=== PATIENT | male | born 1960 | race Caucasian/White ===

== ENCOUNTER 2020-06-28 11:47 | Observation (INO) ==
[2020-06-28] MEDS ORDERED: PANTOprazole 80 MG in DEXTROSE 5% 100 ML IV ONE (12:49)
[2020-06-28] MEDS ORDERED: ONDANSETRON INJ 2 MG/ML 2 ML VIAL IV STA (12:49)
[2020-06-28] MEDS ORDERED: SODIUM CHLORIDE 0.9% 1000ML 1,000 ML IV SCH (13:00)
[2020-06-28 13:18] LABS: Basophils # (auto) 0.03 K/uL (0-0.2); Basophils % (auto) 0.3 %; Eosinophils # (auto) 0.25 K/uL (0-0.5); Eosinophils % (auto) 2.5 %; Hematocrit (blood only) 45.2 % (42-52); Hemoglobin 16.7 g/dL (14.0-18.0); Immature Granulocytes # (auto) 0.03 K/uL (0.00-0.02); Immature Granulocytes % (auto) 0.3 %; Lymphocytes # (auto) 1.28 K/uL (1.2-3.4); Lymphocytes % (auto) 12.9 %; Mean Corpuscular Hemoglobin 29.8 pg (25-34); Mean Corpuscular Hgb Conc 36.9 g/dL (32-36); Mean Corpuscular Volume 80.6 fL (80-100); Mean Platelet Volume 9.6 fL (7.4-10.4); Monocytes # (auto) 0.85 K/uL (0.11-0.59); Monocytes % (auto) 8.5 %; Neutrophils # (auto) 7.52 K/uL (1.4-6.5); Neutrophils % (auto) 75.5 %; Platelet Count 214 K/uL (130-400); RDW Coefficient of Variation 13.4 % (11.5-14.5); RDW Standard Deviation 39.6 fL (36.4-46.3); Red Blood Count 5.61 M/uL (4.7-6.1); White Blood Count 9.96 K/uL (4.8-10.8)
--- NOTE | 2020-06-28 13:21 | Gastrointestinal Consultation ---
Date of Consultation June 28, 2020 Assessment & Plan (1) Dysphagia: (2) Esophageal obstruction due to food impaction: (3) Hematemesis: suspect rosy de la torre tear from forced wretching and food bolus. Recs: keep NPO plan for EGD this afternoon in OR to further evaluate supportive care will need admission to medicine/observation overnight for monitoring Thank you for allowing me to participate in the care of this patient History of Present Illness Reason for Consultation: food bolus, hematemesis Requesting Physician: ER History of Present Illness 59 yo male with hx testicular cancer s/p resection here with hematemesis and dysphagia. He has had dysphagia to solid food for a long time, and will have episodes few times a year where he has to remove the food from his throat with his finger due to dysphagia. Today he had a similar episode after eating an egg roll at 11:30 am, and feels like it is stuck. He then proceeded to vomit blood after forcing himself to wretch. Currently HD stable, no other symptoms including dyspnea, cough, fevers. No prior EGD. labs reviewed. Allergies Allergy/AdvReac Type Severity Reaction Status Date / Time [id number] Allergy Unknown Uncoded 05/13/02 18:27 N Allergy Unknown Uncoded 05/13/02 18:27 Home Medications Medication Instructions Recorded Confirmed Type Aspirin Enteric Coated (Ecotrin Or 81 mg PO DAILY #0 06/14/10 History Generic *) Multivitamin 1 tab PO DAILY #0 06/14/10 History Potassium Chloride (Micro-K Ext 10 meq PO DAILY #0 06/14/10 History Rel) Triamterene/Hctz (Maxzide Unknown 62.5 mg PO DAILY #0 06/14/10 History Dose *) ALLOPURINOL (ZYLOPRIM) 100 mg PO DAILY #0 tab 06/18/12 History Patient History Social History Smoking Status: Never smoker Feels Safe at Home: Yes Review of Systems Constitutional: no fever, no chills and no weight loss Eyes: as per Subjective / HPI Ear, Nose, Mouth, Throat: as per Subjective / HPI Respiratory: no dyspnea and no dyspnea on exertion Cardiovascular: no chest pain and no palpitations Gastrointestinal: as per Subjective / HPI Musculoskeletal: no joint pain and no swelling Integumentary: no rash and no lesions Neurologic: no numbness and no paresthesia Psychiatric: no depression and no anxiety Endocrine: no fatigue Hematologic / Lymphatic: no easy bleeding and no easy bruising Physical Exam Constitutional: WD/WN, vitals as above Eyes: EOM intact bilaterally Neck: normal visual inspection Respiratory: normal respiratory effort, lungs clear to auscultation Cardiovascular: RRR, no murmur, no edema Gastrointestinal (Abdomen): Inspection/Auscultation: abdomen normal to inspection; abdomen not distended Percussion/Palpation: abdomen soft; abdomen nontender and no hepatosplenomegaly Musculoskeletal: Extremities: no cyanosis Gait: normal gait Skin: no rashes, warm and dry Neurologic: moves all extremities Psychiatric: A+Ox3, euthymic affect Results & Data ([facility]) Vital Signs (Past 12 Hours) Vital Signs Temp Pulse Resp BP Pulse Ox 06/28/20 11:51 36.9 C 71 20 152/91 H 97 PG Care Time/CCT Total # of Minutes Spent Total Time Spent with Patient: Total time spent is greater than 50% in coordination of care (as documented) at patient's floor/unit and/or counseling patient: Coding Level of Care Code 56799 Office/OBS Consult Lvl 4 Diagnoses Dysphagia R13.10 Esophageal obstruction due to food impaction K22.2; T18.128A Hematemesis K92.0
--- NOTE | 2020-06-28 13:23 | XRay Report ---
SINGLE VIEW CHEST CLINICAL HISTORY: Upper GI bleeding. Foreign body sensation. FINDINGS: An AP, portable, upright chest radiograph is compared to study dated 06/22/2009 and correlat ed with chest CT dated 12/28/2009. The examination is degraded by portable technique and apical lordot ic positioning. The cardiomediastinal silhouette is unremarkable. There is minimal left basilar atele ctasis. The lungs and pleural spaces are otherwise clear. No pneumothorax is seen. The bony thorax is grossly intact. IMPRESSION: No active disease in the chest. ACT 112: Negative or not required by law. Electronically signed by: Nixon Jerez M.D. 06/28/2020 1:21 PM
[2020-06-28 13:29] LABS: Partial Thromboplastin Ratio 0.9; Partial Thromboplastin Time 22.8 Seconds (21.0-31.0)
[2020-06-28 13:36] LABS: BUN Creatinine Ratio 12.2 (10-20); Calcium 9.4 mg/dl (8.5-10.1); Creatinine Clr Calc Pharmacy 83.6 ml/min; Est GFR (African American) 88.4; Est GFR (Non-African American) 76.2; Potassium 3.6 mmol/L (3.5-5.1)
[2020-06-28 13:38] LABS: Albumin Globulin Ratio 1.3 (0.9-2); Bilirubin,Total 0.9 mg/dl (0.2-1)
[2020-06-28 14:20] LABS: Influenza A virus by PCR Negative (Neg); Influenza B virus by PCR Negative (Neg); RSV by PCR Negative (Neg); SARS CoV2 RNA(COVID-19) InHosp NEGATIVE (Negative)
--- NOTE | 2020-06-28 14:55 | Electrocardiogram Report ---
Test Reason : Blood Pressure : / mmHG Vent. Rate : 064 BPM Atrial Rate : 064 BPM P-R Int : 140 ms QRS Dur : 086 ms QT Int : 382 ms P-R-T Axes : 010 029 021 degrees QTc Int : 394 ms Normal sinus rhythm Normal ECG No previous ECGs available Confirmed by Louis Mahan ([id number]) on 06/28/2020 2:55:08 PM Referred By: Confirmed By:Louis Mahan
[2020-06-28] MEDS ORDERED: LIDOCAINE HCL 2% 2 ML VIAL/AMP(20MG/ML) INFIL ONE (15:18)
[2020-06-28] MEDS ORDERED: PROPOFOL IV EMULSION 10 MG/ML 20 ML VIAL IV ONE (15:18)
[2020-06-28] MEDS ORDERED: fentaNYL citrate 100 MCG/2 ML VIAL ONE (15:19)
[2020-06-28] MEDS ORDERED: MIDAZOLAM HCL 1 MG/ML 2ML VIAL ONE (15:19)
[2020-06-28] MEDS ORDERED: fentaNYL citrate 100 MCG/2 ML VIAL IV PRN (15:23)
[2020-06-28] MEDS ORDERED: ONDANSETRON INJ 2 MG/ML 2 ML VIAL IV PRN ×2 (15:23→18:08)
[2020-06-28] MEDS ORDERED: ePHEDrine sulfate 50 MG/ML AMP IV PRN (15:23)
[2020-06-28] MEDS ORDERED: ATROPINE SULFATE 0.1 MG/ML 10ML SYR IV PRN (15:23)
[2020-06-28] MEDS ORDERED: MEPERIDINE HCL 25 MG/ML CARP/VIAL IV PRN (15:23)
[2020-06-28] MEDS ORDERED: LABETALOL HCL IV 5 MG/ML 20ML IV PRN (15:23)
[2020-06-28] MEDS ORDERED: PHENYLEPHRINE 100MCG/ML 5ML SYR IV PRN (15:23)
--- NOTE | 2020-06-28 15:25 | Anesthesiology Consultation ---
Date of Service June 28, 2020 Covid 19 negative on 06/28/20. Assessment & Plan (1) Encounter for pre-operative examination: Chart Review Chart Review: Acceptable Risk for Surgery and Patient NOT seen in Pre Admission Testing Consults Requested none History Surgery Operation Date: 06/28/20 08:40 Proposed Procedures p Esophagogastroduodenoscopy - Food Bolus - Messi Ram MD Height/Weight Height: 5 ft 9 in Weight: 93.9 kg Allergies Allergy/AdvReac Type Severity Reaction Status Date / Time [id number] Allergy Unknown Uncoded 05/13/02 18:27 N Allergy Unknown Uncoded 05/13/02 18:27 Medications Home Medications Medication Instructions Recorded Confirmed Last Taken allopurinol 100 mg PO DAILY 06/28/20 06/28/20 Unknown atenolol 25 mg PO DAILY 06/28/20 06/28/20 Unknown atorvastatin 40 mg PO DAILY 06/28/20 06/28/20 Unknown triamterene-hydrochlorothiazid 1 tab PO DAILY 06/28/20 06/28/20 Unknown NPO Date Last Intake of Fluids: 06/28/20 Time Last Intake of Fluids: 11:30 Date Last Intake of Solids: 06/28/20 Time Last Intake of Solids: 11:30 Past Medical History Medical History Diverticulosis Gout History of testicular cancer HLD (hyperlipidemia) HTN (hypertension) Past Family History Family History Father , 74 Myocardial infarction Diabetes Son Testicular cancer Past Surgical History Surgical History H/O removal of testicle Right History of colonoscopy Social History Smoking Status: Never smoker Hx Alcohol Use: Yes Alcohol type: beer Hx Substance Use: No Physical Exam Vital Signs Last Vital Signs Temp 37 C 06/28/20 15:12 Pulse 93 H 06/28/20 15:12 Resp 18 06/28/20 15:12 BP 160/82 H 06/28/20 15:12 Pulse Ox 96 06/28/20 15:12 Testing Laboratory Results 06/28/20 13:05 06/28/20 13:05 PT 10.0 Seconds (9.0-12.0) 06/28/20 13:05 INR 1.0 (0.9-1.1) 06/28/20 13:05 APTT 22.8 Seconds (21.0-31.0) 06/28/20 13:05 Blood Type A Positive 06/28/20 13:05 Antibody Screen NEGATIVE 06/28/20 13:05 Electrocardiogram Date: 06/28/20 Findings: + NSR @ (28)
--- NOTE | 2020-06-28 15:26 | History & Physical Report ---
Date of Service June 28, 2020 Assessment & Plan (1) Esophageal obstruction due to food impaction: (2) Dysphagia: (3) Hematemesis: This is a 59-year-old male who has significant past medical history of HTN, HLD, gout, diverticulosis, history of testicular cancer status post resection who presents to ED after having a few moments prior to arrival. Concern for sandra de la torre tear 2/2 to retching and food bolus. To undergo urgent EGD this afternoon by Dr. Ram. EGD and then admit to med tele continue PPI bolus and gtt NPO - will await post EGD recommendations IVF 125cc/hr repeat H&H @ 1900 (4) HTN (hypertension): BP elevated, may be situational took meds this a.m. continue atenolol, hold Maxizide until volume status re eval in a.m. (5) HLD (hyperlipidemia): continue statin (6) Gout: continue allopurinol (7) DVT prophylaxis: SCD/TEDS 2/2 to hematemesis Dispo: med tele PCP: Rody Calderon FULL CODE Pt was seen and examined in collaboration with Dr. Borjas, please see addendum History of Present Illness Chief Complaint: Food Bolus prior to arrival. Primary Care Provider: Marshall Calderon, DO This is a 59-year-old male who has significant past medical history of HTN, HLD, gout, diverticulosis, history of testicular cancer status post resection who presents to ED after having a few moments prior to arrival. Patient was at work whenever he was eating lunch. He was eating a eggroll when it got stuck. This occasionally happens 2-3 times a year and he makes himself vomit and regurgitate. Symptoms typically resolve. Today he was having difficulty regurgitating and developed hematemesis. He presented to ED and had approximately 100 cc hematemesis. He was seen and evaluated by GI was recommending urgent endoscopy due to suspected Sandra-De La Torre tear in setting of retching. Patient denies fall EGD in the past. Until since arrival he has been in her normal state of health. He denies any recent fever, chills, sweats, lightheadedness, dizziness, chest pain, palpitations, shortness of breath, cough, nausea, abdominal pain, change in bowel or urinary habits. Patient took medications for symptoms morning. In ED he remained hemodynamically stable and H&H was WNL. Upon my evaluation he had an additional 100 mg of mixed clear and bloody emesis. Allergies Allergy/AdvReac Type Severity Reaction Status Date / Time bee venom protein (honey bee) Allergy Unknown Unknown Verified 06/28/20 15:34 Home Medications Medication Instructions Recorded Confirmed Type allopurinol 100 mg PO DAILY 06/28/20 06/28/20 History aspirin [Aspir-81] 81 mg PO DAILY 06/28/20 06/28/20 History atenolol 25 mg PO DAILY 06/28/20 06/28/20 History atorvastatin 40 mg PO DAILY 06/28/20 06/28/20 History triamterene-hydrochlorothiazid 1 tab PO DAILY 06/28/20 06/28/20 History Past Med/Surg History Medical History Diverticulosis Gout History of testicular cancer HLD (hyperlipidemia) HTN (hypertension) Surgical History H/O removal of testicle Right History of colonoscopy Family History Father , 74 Myocardial infarction Diabetes Son Testicular cancer Social History (Updated 06/28/20 @ 15:24 by Ariana Arevalo PA-C) Smoking Status: Never smoker Hx Alcohol Use: Yes Alcohol type: beer Alcohol Intake Frequency: Monthly or Less Alcohol Intake Frequency Comment: 3 x / year Hx Substance Use: No Preferred Language: [place] marital status: Current Living Situation: Spouse Feels Safe at Home: Yes Review of Systems Review of Systems: All systems reviewed & are unremarkable except as noted in HPI & below Physical Exam Physical Exam: Constitutional: WD/WN, vitals as above, NAD, sitting up in bed, pleasant, conversing easily Head: Normocephalic, Atraumatic Eyes: PERRL, conjunctivae normal, anicteric sclerae ENMT: external ear and nose normal, oropharynx normal Neck: trachea midline, no thyromegaly normal visual inspection Respiratory: normal respiratory effort, lungs clear to auscultation, no wheeze, rales, rhonchi. Normal insp/exp effort, no accessory muscle use Cardiovascular: RRR, no murmur, no edema Vessels: no JVD or carotid bruit Chest: normal inspection of chest Abdomen: normal bowel sounds, soft, nontender, no hepatosplenomegaly Musculoskeletal: no cyanosis or clubbing, extremities motor strength 5/5 Skin: no rashes, warm and dry normal turgor Neurologic: PERRL, EOMI, accommodation nl, no face palsy, no dysarthria CN's II-XI intact bilaterally and moves all extremities Psychiatric: A+Ox3, euthymic affect Lymphatic: no cervical or axillary lymphadenopathy : deferred Results & Data Results & Data ([facility]) Vital Signs (Past 12 Hours) Vital Signs Temp Pulse Resp BP Pulse Ox 06/28/20 14:00 78 16 149/84 H 94 06/28/20 13:30 74 16 139/78 96 06/28/20 13:00 64 17 154/97 H 97 06/28/20 12:30 68 21 141/93 H 98 06/28/20 12:08 72 20 162/93 H 97 06/28/20 11:51 36.9 C 71 20 152/91 H 97 Diagnostic Findings CXR: FINDINGS: An AP, portable, upright chest radiograph is compared to study dated 06/22/2009 and correlated with chest CT dated 12/28/2009. The examination is degraded by portable technique and apical lordotic positioning. The cardiomediastinal silhouette is unremarkable. There is minimal left basilar atelectasis. The lungs and pleural spaces are otherwise clear. No pneumothorax is seen. The bony thorax is grossly intact. IMPRESSION: No active disease in the chest. ECG Rate (beats per minute): 64 COVID-19 Results Results COVID-19 Adm Lab Results: RBC 5.61 M/uL (4.7-6.1) 06/28/20 WBC 9.96 K/uL (4.8-10.8) 06/28/20 Hgb 16.7 g/dL (14.0-18.0) 06/28/20 Hct 45.2 % (42-52) 06/28/20 Plt Count 214 K/uL (130-400) 06/28/20 Neutrophils (%) (Auto) 75.5 % 06/28/20 Lymphocytes (%) (Auto) 12.9 % 06/28/20 Monocytes # (Auto) 0.85 K/uL (0.11-0.59) H 06/28/20 Eosinophils # (Auto) 0.25 K/uL (0-0.5) 06/28/20 Immature Granulocyte % (Auto) 0.3 % 06/28/20 Neutrophils # (Auto) 7.52 K/uL (1.4-6.5) H 06/28/20 Lymphocytes # (Auto) 1.28 K/uL (1.2-3.4) 06/28/20 Monocytes # (Auto) 0.85 K/uL (0.11-0.59) H 06/28/20 Eosinophils # (Auto) 0.25 K/uL (0-0.5) 06/28/20 Basophils # (Auto) 0.03 K/uL (0-0.2) 06/28/20 Immature Granulocyte # (Auto) 0.03 K/uL (0.00-0.02) H 06/28/20 Na 139 mmol/L (136-145) 06/28/20 K 3.6 mmol/L (3.5-5.1) 06/28/20 Cl 106 mmol/L (98-107) 06/28/20 CO2 29 mmol/L (21-32) 06/28/20 Anion Gap 5.0 (3-11) 06/28/20 BUN 13 mg/dl (7-18) 06/28/20 Creatinine 1.05 mg/dl (0.6-1.4) 06/28/20 BUN/Creatinine Ratio 12.2 (10-20) 06/28/20 Glucose Level 116 mg/dl (70-99) H 06/28/20 Ca 9.4 mg/dl (8.5-10.1) 06/28/20 Total Bilirubin 0.9 mg/dl (0.2-1) 06/28/20 AST/SGOT 29 U/L (15-37) 06/28/20 ALT/SGPT 58 U/L (12-78) 06/28/20 Alkaline Phosphatase 122 U/L (45-117) H 06/28/20 Total Protein 7.0 gm/dl (6.4-8.2) 06/28/20 Albumin 4.0 gm/dl (3.4-5.0) 06/28/20 Globulin 3.0 gm/dl (2.5-4.0) 06/28/20 Albumin/Globulin Ratio 1.3 (0.9-2) 06/28/20 PTT 22.8 Seconds (21.0-31.0) 06/28/20 INR 1.0 (0.9-1.1) 06/28/20 COVID-19 PCR NEGATIVE (Negative) 06/28/20 Influenza Virus Type A (PCR) Negative (Neg) 06/28/20 Influenza Virus Type B (PCR) Negative (Neg) 06/28/20 Chest X-Ray 06/28/20 Code Status & VTE Plan VTE Prophylaxis Plan VTE Prophylaxis will be ordered: Yes Supervising Physician Co-Signing Physician Notes Patient is a 59-year-old male with history of hypertension, hyperlipidemia, gout, diverticulosis and other medical problems presents with history of dysphagia associated with hematemesis after eating an egg roll this morning. He states having similar episode in the past. Please review HPI for complete details of presentation. Patient underwent an endoscopy and was found to have food in the middle third of the esophagus and in the lower third of esophagus which was successfully removed. Sandra-De La Torre tear was noted which was clipped as well. Benign appearing esophageal stenosis was dilated. Postprocedure patient complained of mild sore throat and epigastric abdominal discomfort. He denies any nausea, vomiting currently. On exam patient is moderately built and nourished, no apparent distress, normocephalic atraumatic, lungs are clear to auscultation, normal breath sounds, S1-S2, no murmur, abdomen soft, nontender, normal bowel sounds, no pedal edema, electromagnetic, oriented, grossly nonfocal neurological deficits. Patient is admitted for management of dysphagia, hematemesis. S/P successful removal of the food bolus and clipping of Sandra- De La Torre tear. Continue IV PPI. Appreciate GI input. We will keep him n.p.o. for now. Gentle IV fluids. Plan for swallow study tomorrow. Monitor H&H and transfuse PRBCs if needed. Patient will need repeat EGD in 4 to 6 weeks. I personally reviewed the record. Patient is interviewed and examined at bedside. Patient's care is coordinated with Ariana Arevalo PA-C. Please refer to the documentation above for details of patient's presentation and for discussion of other issues.
[2020-06-28] MEDS ORDERED: SUCCINYLCHOLINE 100MG/5ML SYR IV ONE (16:18)
[2020-06-28] MEDS ORDERED: ONDANSETRON INJ 2 MG/ML 2 ML VIAL ONE (16:18)
--- NOTE | 2020-06-28 16:45 | GI REPORT ---
Patient Name: Krishna Reyna Procedure Date: 06/28/2020 3:31 PM Date of : 1960 Admit Type: Emergency Department Age: 59 Gender: Male Attending MD: Messi Ram MD Procedure: Upper GI endoscopy Providers: Messi Ram MD Referring MD: Messi Ram MD Indications: Foreign body in the esophagus Medicines: Monitored Anesthesia Care Complications: No immediate complications. Estimated blood loss: None. Estimated Blood Loss: Estimated blood loss: none. Procedure: Pre-Anesthesia Assessment: - Prior Anticoagulants: The patient has taken no previous anticoagulant or antiplatelet agents. - ASA Grade Assessment: II - A patient with mild systemic disease. After obtaining informed consent, the endoscope was passed under direct vision. Throughout the procedure, the patient's blood pressure, pulse, and oxygen saturations were monitored continuously. The Endoscope was introduced through the mouth, and advanced to the second part of duodenum. The upper GI endoscopy was accomplished without difficulty. The patient tolerated the procedure well. Findings: Food, specifically an eggroll, was found in the middle third of the esophagus and in the lower third of the esophagus. Removal of food was accomplished using a cold snare and rat tooth forceps succesfully . Estimated blood loss: none. A greater than 50 mm non-bleeding Sandra-Dia tear was found. To repair the defect, the tissue edges were approximated and four hemostatic clips were successfully placed. There was no bleeding at the end of the procedure. The entire examined stomach was normal. The duodenal bulb and second portion of the duodenum were normal. One benign-appearing, intrinsic mild stenosis was found at the GE junction. The stenosis was traversed. A TTS dilator was passed through the scope. Dilation with a 10-11-12 mm balloon dilator was performed to 12 mm with improved luminal narrowing noted. Estimated blood loss: none. Impression: - Food in the middle third of the esophagus and in the lower third of the esophagus. Removal was successful. - Sandra-Dia tear. Clips were placed. - Normal stomach. - Normal duodenal bulb and second portion of the duodenum. - Benign-appearing esophageal stenosis. Dilated. Recommendation: - [facility] care. - NPO today. -obtain gastrograffin swallow tomorrow morning, if normal study then can advance to clear liquid diet -repeat EGD in 4-6 weeks Messi Ram MD 06/28/2020 4:44:50 PM This report has been signed electronically. Note Initiated On: 06/28/2020 3:31 PM Number of Addenda: 0 I attest to the content of the Intraoperative Record and orders documented therein, exceptions below {[id number]}
--- NOTE | 2020-06-28 16:47 | Procedure Note ---
Procedure Note Date of Service June 28, 2020 GI brief procedure note EGD findings: large food bolus, egg roll, in the mid-lower esophagus, removed with cold snare and rat tooth forceps. Large >5 cm rosy de la torre tear in the mid- lower esophagus, nonbleeding, clips applied. stricture at GE junction, dilated to 12 mm with balloon successfully. Recs: -strict NPO today -obtain gastrograffin swallow tomorrow morning, if normal then can advance diet to clear liquids -supportive care -repeat EGD in 4-6 weeks Messi Ram MD Gastroenterology Coding
--- NOTE | 2020-06-28 17:01 | Anesthesiology Progress Note ---
Date of Service June 28, 2020 Anesthesia Post Procedure Vital Signs Vital Signs: Temp Pulse Pulse Pulse Resp BP BP 06/28/20 16:50 105 H 13 06/28/20 16:44 36.3 C L 112 H 20 06/28/20 15:12 37 C 93 H 18 160/82 H 06/28/20 14:00 78 16 149/84 H 06/28/20 13:30 74 16 139/78 06/28/20 13:00 64 17 154/97 H 06/28/20 12:30 68 21 141/93 H 06/28/20 12:08 72 20 162/93 H 06/28/20 11:51 36.9 C 71 20 152/91 H BP Pulse Ox 06/28/20 16:50 105/85 99 06/28/20 16:44 133/80 100 06/28/20 15:12 96 06/28/20 14:00 94 06/28/20 13:30 96 06/28/20 13:00 97 06/28/20 12:30 98 06/28/20 12:08 97 06/28/20 11:51 97 Transfer of Care Handoff Completed per policy Notes Mental Status: alert / awake / arousable Patient Amnestic to Procedure: Yes Nausea / Vomiting: adequately controlled Pain: adequately controlled Airway Patency, RR, SpO2: stable & adequate BP & HR: stable & adequate Hydration State: stable & adequate Anesthetic Complications: no major complications apparent and Pt Satisfied with anesthetic care
[2020-06-28] MEDS ORDERED: ACETAMINOPHEN 1,000 MG/100 ML VIAL IV PRN (18:08)
[2020-06-28] MEDS: SODIUM CHLORIDE 0.9% 1000ML 1,000 ML IV SCH (19:38)
[2020-06-28 20:58] LABS: Hematocrit (blood only) 41.8 % (42-52); Hemoglobin 15.7 g/dL (14.0-18.0)
--- NOTE | 2020-06-28 21:08 | Emergency Department Note ---
History of Present Illness General Chief complaint: Food Bolus Stated complaint: SPITTING UP BLOOD/ Source: patient Mode of arrival: ambulatory Limitations: no limitations History of Present Illness Provider complaint: Vomiting blood, food bolus Maximum Pain Intensity: 5 This pt is a 59 yo male who presents to the ED with c/o food bolus. Pt states he was eating an egg roll at lunch, about 30-60 min [employer] when he felt it get stuck. This happens about 2x year and he is able to alleviate it by forced vomiting. Today the pt stuck his finger down his throat and retched. He began to vomit bright red blood. Pt denies pain in chest or upper abdomen. He denies ever seeing a GI doctor for this in the past. He denies bloody stools or diarrhea. Home Medications Medication Instructions Recorded Confirmed Type allopurinol 100 mg PO DAILY 06/28/20 06/28/20 History atenolol 25 mg PO DAILY 06/28/20 06/28/20 History atorvastatin 40 mg PO DAILY 06/28/20 06/28/20 History triamterene-hydrochlorothiazid 1 tab PO DAILY 06/28/20 06/28/20 History pantoprazole 40 mg PO BID 30 Days #60 tab 06/30/20 Rx Allergies Allergy/AdvReac Type Severity Reaction Status Date / Time bee venom protein (honey bee) Allergy Unknown Unknown Verified 06/28/20 15:34 Past Med/Surg History Medical History Diverticulosis Gout History of testicular cancer HLD (hyperlipidemia) HTN (hypertension) Surgical History H/O removal of testicle Right History of colonoscopy Family History Father , 74 Myocardial infarction Diabetes Son Testicular cancer Social History Smoking Status: Never smoker Second Hand Exposure: No; Hx Alcohol Use: Yes Alcohol type: beer Alcohol Intake Frequency: Monthly or Less Alcohol Intake Frequency Comment: 3 x / year Hx Substance Use: No Preferred Language: Syriac Communication Ability: Effective [employer] Employee Required: No Beliefs That Will Affect Care: None marital status: Current Living Situation: Family Feels Safe at Home: Yes Review of Systems See HPI for pertinent positives & negatives. and A total of 10 systems reviewed and were otherwise negative Physical Exam Vital Signs Vital Signs - 24 hr 06/28/20 11:51 06/28/20 12:08 06/28/20 12:30 Temperature 36.9 C Temperature Source Temporal Artery Scan Pulse Rate 71 72 68 Pulse Rate from SpO2 Sensor 76 75 Respiratory Rate 20 20 21 Blood Pressure 152/91 H 162/93 H 141/93 H Blood Pressure Mean 111 116 109 Pulse Oximetry 97 97 98 Oxygen Delivery Method Room Air Sepsis Recent Fever Within 48 Hours No Sepsis New/Unexplained Change in Mental Status No Sepsis Action Taken by Nursing No Action Required 06/28/20 13:00 06/28/20 13:30 06/28/20 14:00 Temperature Temperature Source Pulse Rate 64 74 78 Pulse Rate from SpO2 Sensor 68 76 82 Respiratory Rate 17 16 16 Blood Pressure 154/97 H 139/78 149/84 H Blood Pressure Mean 116 98 105 Pulse Oximetry 97 96 94 Oxygen Delivery Method Sepsis Recent Fever Within 48 Hours Sepsis New/Unexplained Change in Mental Status Sepsis Action Taken by Nursing Vital signs reviewed. General: Well-appearing 59 yo male, in no significant distress. Holding emesis bag w ~100 mL BRB only HEENT: No scleral icterus, PERRLA, neck supple. Atraumatic. Cardiovascular: Regular rate and rhythm, no extra sounds. Pulmonary: Clear to auscultation bilaterally, normal work of breathing. Abdomen: Soft, nontender, nondistended, positive bowel sounds. Musculoskeletal: Atraumatic, no peripheral edema. Neurologic: Patient awake alert and oriented x 3 Skin: Warm, dry, no rash Course Administered Medications Discontinued Medications Sodium Chloride (Nss 1000ml) 1,000 mls @ 999 mls/hr IV .Q1H1M MODE Stop: 06/28/20 14:00 Last Infusion: 06/28/20 14:29 Dose: 0 mls/hr Documented by: [id number] Admin: 06/28/20 13:17 Dose: 999 mls/hr Documented by: [id number] Pantoprazole Sodium 80 mg/ (Dextrose) 100 mls @ 400 mls/hr IV NOW ONE Stop: 06/28/20 13:03 Last Infusion: 06/28/20 14:29 Dose: 0 mls/hr Documented by: [id number] Admin: 06/28/20 13:11 Dose: 400 mls/hr Documented by: [id number] Sodium Chloride (Nss 1000ml) 1,000 mls @ 125 mls/hr IV .Q8H MODE Stop: 07/28/20 15:00 Last Admin: 06/29/20 15:05 Dose: Not Given Documented by: [id number] Infusion: 06/29/20 12:00 Dose: 0 mls/hr Documented by: [id number] Admin: 06/29/20 04:00 Dose: 125 mls/hr Documented by: [id number] Infusion: 06/29/20 03:38 Dose: 125 mls/hr Documented by: [id number] Admin: 06/28/20 19:38 Dose: 125 mls/hr Documented by: [id number] Pantoprazole Sodium 40 mg/ (Dextrose) 100 mls @ 20 mls/hr IV Q5H MODE Stop: 07/28/20 15:00 Last Admin: 06/29/20 15:05 Dose: Not Given Documented by: [id number] Infusion: 06/29/20 11:41 Dose: 0 mg/hr, 0 mls/hr Documented by: [id number] Admin: 06/29/20 06:41 Dose: 8 mg/hr, 20 mls/hr Documented by: [id number] Infusion: 06/29/20 06:41 Dose: 8 mg/hr, 20 mls/hr Documented by: [id number] Admin: 06/29/20 01:44 Dose: 8 mg/hr, 20 mls/hr Documented by: [id number] Infusion: 06/29/20 01:44 Dose: 8 mg/hr, 20 mls/hr Documented by: [id number] Admin: 06/28/20 21:32 Dose: Not Given Documented by: [id number] Admin: 06/28/20 21:09 Dose: 8 mg/hr, 20 mls/hr Documented by: [id number] Ondansetron HCl (Ondansetron Inj 2 Mg/Ml 2 Ml Vial) 4 mg IV ONE STA Stop: 06/28/20 12:50 Last Admin: 06/28/20 13:12 Dose: 4 mg Documented by: [id number] Pantoprazole Sodium (Pantoprazole 40 Mg Tab) 40 mg PO BID MODE Stop: 07/29/20 20:59 Last Admin: 06/30/20 08:52 Dose: 40 mg Documented by: [id number] Admin: 06/29/20 20:42 Dose: 40 mg Documented by: [id number] Critical Care Time Critical Care Time: Yes The high probability of a clinically significant, sudden or life threatening deterioration required my full and direct attention, intervention and personal management. The aggregate critical care time was 30 minutes. This time is in addition to time spent performing reported procedures but includes the following: [x] Data Review and interpretation [x] Patient assessment and monitoring of vital signs [x] Documentation [x] Medication orders and management Medical Decision Making Differential Diagnosis Gastroenteritis, food impaction, esophageal stricture, esophageal mass, infections, appendicitis, diverticulitis, inflammatory bowel disease, obstruction, GI bleed, biliary pathology, volvulus, as well as other pathologies. Medical Records Attestation: I reviewed the patient's medical records. Home Medications Current Medication List: was personally reviewed by me Laboratory Data Attestation: I reviewed the patient's lab results. Result diagrams: 06/29/20 07:07 06/29/20 07:07 Lab Results 06/28/20 06/28/20 06/28/20 Range/Units 13:05 13:05 13:05 WBC 9.96 (4.8-10.8) K/uL RBC 5.61 (4.7-6.1) M/uL Hgb 16.7 (14.0-18.0) g/dL Hct 45.2 (42-52) % MCV 80.6 (80-100) fL MCH 29.8 (25-34) pg MCHC 36.9 H (32-36) g/dL RDW Std Deviation 39.6 (36.4-46.3) fL RDW Coeff of Ramakrishna 13.4 (11.5-14.5) % Plt Count 214 (130-400) K/uL MPV 9.6 (7.4-10.4) fL Immature Gran % (Auto) 0.3 % Neut % (Auto) 75.5 % Lymph % (Auto) 12.9 % [place] % (Auto) 8.5 % Eos % (Auto) 2.5 % Baso % (Auto) 0.3 % Neut # (Auto) 7.52 H (1.4-6.5) K/uL Lymph # (Auto) 1.28 (1.2-3.4) K/uL [place] # (Auto) 0.85 H (0.11-0.59) K/uL Eos # (Auto) 0.25 (0-0.5) K/uL Baso # (Auto) 0.03 (0-0.2) K/uL Immature Gran # (Auto) 0.03 H (0.00-0.02) K/uL PT 10.0 (9.0-12.0) Seconds INR 1.0 (0.9-1.1) APTT 22.8 (21.0-31.0) Seconds PTT Ratio 0.9 Sodium (136-145) mmol/L Potassium (3.5-5.1) mmol/L Chloride (98-107) mmol/L Carbon Dioxide (21-32) mmol/L Anion Gap (3-11) BUN (7-18) mg/dl Creatinine (0.6-1.4) mg/dl Est Cr Clr Drug Dosing ml/min Est GFR ( Amer) Est GFR (Non-Af Amer) BUN/Creatinine Ratio (10-20) Glucose (70-99) mg/dl Calcium (8.5-10.1) mg/dl Total Bilirubin (0.2-1) mg/dl AST (15-37) U/L ALT (12-78) U/L Alkaline Phosphatase (45-117) U/L Total Protein (6.4-8.2) gm/dl Albumin (3.4-5.0) gm/dl Globulin (2.5-4.0) gm/dl Albumin/Globulin Ratio (0.9-2) COVID-19 Eval Order SARS-CoV-2 (PCR) (Negative) Influenza Type A (PCR) (Neg) Influenza Type B (PCR) (Neg) RSV (RT-PCR) (Neg) Blood Type A Positive Antibody Screen NEGATIVE 06/28/20 06/28/20 06/28/20 Range/Units 13:05 13:26 13:26 WBC (4.8-10.8) K/uL RBC (4.7-6.1) M/uL Hgb (14.0-18.0) g/dL Hct (42-52) % MCV (80-100) fL MCH (25-34) pg MCHC (32-36) g/dL RDW Std Deviation (36.4-46.3) fL RDW Coeff of Ramakrishna (11.5-14.5) % Plt Count (130-400) K/uL MPV (7.4-10.4) fL Immature Gran % (Auto) % Neut % (Auto) % Lymph % (Auto) % [place] % (Auto) % Eos % (Auto) % Baso % (Auto) % Neut # (Auto) (1.4-6.5) K/uL Lymph # (Auto) (1.2-3.4) K/uL [place] # (Auto) (0.11-0.59) K/uL Eos # (Auto) (0-0.5) K/uL Baso # (Auto) (0-0.2) K/uL Immature Gran # (Auto) (0.00-0.02) K/uL PT (9.0-12.0) Seconds INR (0.9-1.1) APTT (21.0-31.0) Seconds PTT Ratio Sodium 139 (136-145) mmol/L Potassium 3.6 (3.5-5.1) mmol/L Chloride 106 (98-107) mmol/L Carbon Dioxide 29 (21-32) mmol/L Anion Gap 5.0 (3-11) BUN 13 (7-18) mg/dl Creatinine 1.05 (0.6-1.4) mg/dl Est Cr Clr Drug Dosing 83.6 ml/min Est GFR ( Amer) 88.4 Est GFR (Non-Af Amer) 76.2 BUN/Creatinine Ratio 12.2 (10-20) Glucose 116 H (70-99) mg/dl Calcium 9.4 (8.5-10.1) mg/dl Total Bilirubin 0.9 (0.2-1) mg/dl AST 29 (15-37) U/L ALT 58 (12-78) U/L Alkaline Phosphatase 122 H (45-117) U/L Total Protein 7.0 (6.4-8.2) gm/dl Albumin 4.0 (3.4-5.0) gm/dl Globulin 3.0 (2.5-4.0) gm/dl Albumin/Globulin Ratio 1.3 (0.9-2) COVID-19 Eval Order CovFluRsv at [facility] SARS-CoV-2 (PCR) NEGATIVE (Negative) Influenza Type A (PCR) Negative (Neg) Influenza Type B (PCR) Negative (Neg) RSV (RT-PCR) Negative (Neg) Blood Type Antibody Screen 06/28/20 06/29/20 06/29/20 Range/Units 20:35 07:07 07:07 WBC 11.93 H (4.8-10.8) K/uL RBC 4.90 (4.7-6.1) M/uL Hgb 15.7 14.7 (14.0-18.0) g/dL Hct 41.8 L 40.5 L (42-52) % MCV 82.7 (80-100) fL MCH 30.0 (25-34) pg MCHC 36.3 H (32-36) g/dL RDW Std Deviation 41.5 (36.4-46.3) fL RDW Coeff of Ramakrishna 13.8 (11.5-14.5) % Plt Count 174 (130-400) K/uL MPV 9.9 (7.4-10.4) fL Immature Gran % (Auto) 0.2 % Neut % (Auto) 77.8 % Lymph % (Auto) 10.5 % [place] % (Auto) 10.5 % Eos % (Auto) 0.8 % Baso % (Auto) 0.2 % Neut # (Auto) 9.30 H (1.4-6.5) K/uL Lymph # (Auto) 1.25 (1.2-3.4) K/uL [place] # (Auto) 1.25 H (0.11-0.59) K/uL Eos # (Auto) 0.09 (0-0.5) K/uL Baso # (Auto) 0.02 (0-0.2) K/uL Immature Gran # (Auto) 0.02 (0.00-0.02) K/uL PT (9.0-12.0) Seconds INR (0.9-1.1) APTT (21.0-31.0) Seconds PTT Ratio Sodium 140 (136-145) mmol/L Potassium 3.3 L (3.5-5.1) mmol/L Chloride 107 (98-107) mmol/L Carbon Dioxide 28 (21-32) mmol/L Anion Gap 4.0 (3-11) BUN 15 (7-18) mg/dl Creatinine 0.95 (0.6-1.4) mg/dl Est Cr Clr Drug Dosing 92.4 ml/min Est GFR ( Amer) 99.7 Est GFR (Non-Af Amer) 86.1 BUN/Creatinine Ratio 15.3 (10-20) Glucose 116 H (70-99) mg/dl Calcium 8.4 L (8.5-10.1) mg/dl Total Bilirubin (0.2-1) mg/dl AST (15-37) U/L ALT (12-78) U/L Alkaline Phosphatase (45-117) U/L Total Protein (6.4-8.2) gm/dl Albumin (3.4-5.0) gm/dl Globulin (2.5-4.0) gm/dl Albumin/Globulin Ratio (0.9-2) COVID-19 Eval Order SARS-CoV-2 (PCR) (Negative) Influenza Type A (PCR) (Neg) Influenza Type B (PCR) (Neg) RSV (RT-PCR) (Neg) Blood Type Antibody Screen Imaging Data Radiologist's Impression: Chest X-Ray 06/28/20 12:49 SINGLE VIEW CHEST CLINICAL HISTORY: Upper GI bleeding. Foreign body sensation. FINDINGS: An AP, portable, upright chest radiograph is compared to study dated 06/22/2009 and correlated with chest CT dated 12/28/2009. The examination is degraded by portable technique and apical lordotic positioning. The cardiomediastinal silhouette is unremarkable. There is minimal left basilar atelectasis. The lungs and pleural spaces are otherwise clear. No pneumothorax is seen. The bony thorax is grossly intact. IMPRESSION: No active disease in the chest. ACT 112: Negative or not required by law. Electronically signed by: Nixon Jerez M.D. 06/28/2020 1:21 PM Barium Swallow X-Ray 06/29/20 09:09 FL barium swallow w/o air CLINICAL HISTORY: food bolus. Sandra-Dia tear. USE GASTROGRAFIN COMPARISON STUDY: None. FLUOROSCOPY TIME: 0.5 minutes.. FINDINGS: 30 fluoroscopic spot images submitted. The patient swallowed water- soluble contrast. There is a area of focal irregularity within the distal right esophagus concerning for an intramural tear. No extravasation of contrast into the mediastinum to suggest a full-thickness esophageal tear. No hiatus hernia. There is mild esophageal dysmotility. IMPRESSION: Focal irregularity within the distal right esophagus concerning for an intramural tear. ACT 112: Negative or not required by law. Electronically signed by: Solo Strong M.D. 06/29/2020 1:19 PM ECG Data Attestation: I personally reviewed and interpreted this ECG as follows: Indication: + vomiting Rate (beats per minute): 64 Rhythm: + normal sinus ECG Intervals/blocks: + Normal QRS and + Normal QT-c ECG Occidental: + Normal ECG ST segments: + Nonspecific ST abnormalities ECG Findings: no PACs and no PVCs Blood Pressure Additional Comments: MDM Narrative This pt was evaluated and appeared to be in no distress. IV access was obtained and lab work was drawn. An order for cardiac monitoring was placed and the pt was noted to be in a NSR at 72 bpm. IVF were initiated and pt was medicated with IV zofran and IV protonix. Lab work was reassuring, hbg was noted to be 15.7 and pt remained hemodynamically stable in the ED. Pt was type and screened. Case was discussed with Dr. Ram of Gi who agreed to evaluate the pt for endoscopy and further management. The hospitalist was made aware of the case for post procedure admission. Pt was made aware of the plan and agreed. COVID negative. Impression & Plan Esophageal obstruction due to food impaction, Hematemesis Discharge Plan Visit Data Chief Complaint: Food Bolus Stated Complaint: SPITTING UP BLOOD/ ED Provider: Annalise Enriquez Discharge Problem: Esophageal obstruction due to food impaction, Hematemesis Patient Disposition: Still a Patient Discharge Problem: Hematemesis Qualifiers: Nausea presence: with nausea Qualified Code(s): K92.0 - Hematemesis
[2020-06-28] MEDS: PANTOprazole 40 MG in DEXTROSE 5% 100 ML IV SCH ×2 (21:09→21:32)
[2020-06-29] MEDS: PANTOprazole 40 MG in DEXTROSE 5% 100 ML IV SCH ×3 (01:44→15:05)
[2020-06-29] MEDS: SODIUM CHLORIDE 0.9% 1000ML 1,000 ML IV SCH ×2 (04:00→15:05)
[2020-06-29 07:33] LABS: Basophils # (auto) 0.02 K/uL (0-0.2); Basophils % (auto) 0.2 %; Eosinophils # (auto) 0.09 K/uL (0-0.5); Eosinophils % (auto) 0.8 %; Hematocrit (blood only) 40.5 % (42-52); Hemoglobin 14.7 g/dL (14.0-18.0); Immature Granulocytes # (auto) 0.02 K/uL (0.00-0.02); Immature Granulocytes % (auto) 0.2 %; Lymphocytes # (auto) 1.25 K/uL (1.2-3.4); Lymphocytes % (auto) 10.5 %; Mean Corpuscular Hgb Conc 36.3 g/dL (32-36); Mean Corpuscular Volume 82.7 fL (80-100); Mean Platelet Volume 9.9 fL (7.4-10.4); Monocytes # (auto) 1.25 K/uL (0.11-0.59); Monocytes % (auto) 10.5 %; Neutrophils % (auto) 77.8 %; Platelet Count 174 K/uL (130-400); RDW Coefficient of Variation 13.8 % (11.5-14.5); RDW Standard Deviation 41.5 fL (36.4-46.3); White Blood Count 11.93 K/uL (4.8-10.8)
[2020-06-29 08:02] LABS: BUN Creatinine Ratio 15.3 (10-20); Calcium 8.4 mg/dl (8.5-10.1); Creatinine Clr Calc Pharmacy 92.4 ml/min; Est GFR (African American) 99.7; Est GFR (Non-African American) 86.1; Potassium 3.3 mmol/L (3.5-5.1)
--- NOTE | 2020-06-29 10:18 | Gastroenterology Progress Note ---
Date of Service June 29, 2020 Assessment & Plan (1) Dysphagia: (2) Esophageal obstruction due to food impaction: (3) Hematemesis: Chest tightness, status post EGD with findings of Rosy-Dia tear s/p Endoclip placement and food bolus. -Gastrografin barium swallow this am. -NPO for now. If no evidence of esophageal tear, can advance to clear liquid diet. -Continue supportive care. -EGD in 4-6 weeks as outpatient to be arranged by our office. Admission and Anticipated Discharge Date Admission Date: June 28, 2020 Supervising Physician Co-Signing Physician Notes I personally evaluated the patient and agree with the findings as documented by LORELEI Dia no leak noted on gastrograffin swallow, had a sizeable rosy dia tear (approx 10 mm) noted on endoscopy yesterday, closed with clips. Can advance diet to clear liquids for today with close monitoring, if stable tomorrow morning then can advance diet as tolerated. will need repeat EGD in 4-6 weeks. Subjective Patient reports feeling well today. Complains only of mild chest tightness. Remains NPO after EGD yesterday for food bolus and findings of Rosy-Dia tear s/p Endoclip placement. Review of Systems Constitutional: no problem reported Respiratory: no problem reported Cardiovascular: as per Subjective / HPI Physical Exam Constitutional: WD/WN, vitals as above well developed and well nourished Respiratory: normal respiratory effort Musculoskeletal: Extremities: extremities normal to inspection Psychiatric: A+Ox3, euthymic affect Results & Data Results & Data ([facility]) Vital Signs (Past 12 Hours) Vital Signs Temp Pulse Pulse Resp BP BP Pulse Ox 06/29/20 07:44 36.8 C 98 H 20 139/78 94 06/29/20 07:15 96 H 06/29/20 03:30 114 H 06/29/20 02:27 37.5 C 110 H 16 123/82 91 06/28/20 23:52 37.2 C 115 H 18 132/72 92 PG Care Time/CCT Total # of Minutes Spent Total Time Spent with Patient: Total time spent is greater than 50% in coordination of care (as documented) at patient's floor/unit and/or counseling patient: Coding Level of Care Code 00119 Subseq Hosp Care Lvl 3 Diagnoses Dysphagia R13.10 Esophageal obstruction due to food impaction K22.2; T18.128A Hematemesis K92.0
--- NOTE | 2020-06-29 13:20 | Fluoroscopy Report ---
FL barium swallow w/o air CLINICAL HISTORY: food bolus. Sandra-Dia tear. USE GASTROGRAFIN COMPARISON STUDY: None. FLUOROSCOPY TIME: 0.5 minutes.. FINDINGS: 30 fluoroscopic spot images submitted. The patient swallowed water-soluble contrast. There is a area of focal irregularity within the distal right esophagus concerning for an intramural tear. No extravasation of contrast into the mediastinum to suggest a full-thickness esophageal tear. No hia tus hernia. There is mild esophageal dysmotility. IMPRESSION: Focal irregularity within the distal right esophagus concerning for an intramural tear. ACT 112: Negative or not required by law. Electronically signed by: Solo Strong M.D. 06/29/2020 1:19 PM
--- NOTE | 2020-06-29 13:24 | Hospitalist Progress Note ---
Date of Service June 29, 2020 Assessment & Plan (1) Esophageal obstruction due to food impaction: (2) Dysphagia: (3) Hematemesis: This is a 59-year-old male who has significant past medical history of HTN, HLD, gout, diverticulosis, history of testicular cancer status post resection who p resents to ED after having a few moments prior to arrival. possible Sandra Dia tear 2/2 to retching and food bolus. s/p urgent EGD by Dr. Ram -with removal of large amount of impacted food tessa jose maria Gastrografin swallow study : IMPRESSION: Focal irregularity within the distal right esophagus concerning for an intramural tear. no extravasation of contrast in mediastinum suggestive of full thickness tear H&H been stable no further episode of hematemesis appreciate GI input clear liquid diet , change PPI to PO , Dc iv protonix diet can be advanced to full liquid in breakfast if able to tolerate PO intake observe in hospital overnight will need repeat EGD in next 4-6 weeks (4) HTN (hypertension): BP stable (5) HLD (hyperlipidemia): continue statin (6) Gout: continue allopurinol (7) DVT prophylaxis: SCD/TEDS 2/2 to hematemesis PCP: Rody Calderon FULL CODE Disposition : possible Discharge to home in [place] after seen by GI team Admission and Anticipated Discharge Date Admission Date: June 28, 2020 Subjective follow up visit for dysphagia /food impaction /Sandra Wies Tear of lower esophageus ; says feels better no complain of chest pain or discomfort no cough , no fever or chills tolerated clear diet well Review of Systems Review of Systems: All systems reviewed & are unremarkable except as noted in Subjective Physical Exam Physical Exam: Physical exam: General: No acute distress, alert awake oriented x3 HEENT: PERRLA, EOMI, Heart: Regular S1-S2, no carotid bruit, no JVD, no lower extremity edema Lungs: Clear to auscultate, no wheeze or rales Abdomen: Soft nontender, no organomegaly Extremity: No cyanosis, no deformity, normal strength 5 out of 5 with upper and lower Neuro: No focal neurological deficit normal speech, normal visual field, Motor strength : normal both upper and lower extremity, sensation intact Psych: Alert awake oriented x3, normal affect Results & Data Results & Data ([facility]) Vital Signs (Past 12 Hours) Vital Signs Temp Pulse Pulse Resp BP BP Pulse Ox 06/29/20 11:34 37.3 C 91 H 20 136/75 96 06/29/20 07:44 36.8 C 98 H 20 139/78 94 06/29/20 07:15 96 H 06/29/20 03:30 114 H 06/29/20 02:27 37.5 C 110 H 16 123/82 91
[2020-06-29] MEDS: PANTOprazole 40 MG TAB PO SCH (20:42)
[2020-06-29] MEDS ORDERED: PANTOprazole 40 MG in SYRINGE 0 ML IV SCH (21:00)
[2020-06-30] MEDS ORDERED: PANTOprazole 40 MG TAB PO SCH
[2020-06-30] MEDS: PANTOprazole 40 MG TAB PO SCH (08:52)
--- NOTE | 2020-06-30 10:26 | Gastroenterology Progress Note ---
Date of Service June 30, 2020 Assessment & Plan (1) Dysphagia: (2) Esophageal obstruction due to food impaction: (3) Hematemesis: Chest tightness, status post EGD with findings of Sandra-Dia tear s/p Endoclip placement and food bolus. -Advance diet to soft diet as tolerated. -EGD in 4-6 weeks which has been arranged by our office. -Stable for discharge if cleared by primary team. Admission and Anticipated Discharge Date Admission Date: June 29, 2020 Subjective Patient reports feeling well this morning. Tolerating full liquids. Denies any chest pain, abdominal pain or other GI complaints. Swallowing is without odynophagia. Review of Systems Review of Systems: All systems reviewed & are unremarkable except as noted in HPI & below Physical Exam Constitutional: well developed and well nourished Eyes: EOM intact bilaterally Neck: normal visual inspection Respiratory: normal respiratory effort Skin: normal color Psychiatric: A+Ox3, euthymic affect Results & Data Results & Data ([facility]) Vital Signs (Past 12 Hours) Vital Signs Temp Pulse Resp BP Pulse Ox 06/30/20 07:28 36.6 C 93 H 18 141/84 H 94 PG Care Time/CCT Total # of Minutes Spent Total Time Spent with Patient: Total time spent is greater than 50% in coordination of care (as documented) at patient's floor/unit and/or counseling patient: Coding Level of Care Code 45155 Subseq Hosp Care Lvl 3 Diagnoses Dysphagia R13.10 Esophageal obstruction due to food impaction K22.2; T18.128A Hematemesis K92.0
--- NOTE | 2020-06-30 13:02 | Discharge Summary ---
Date of Service June 30, 2020 Admission HPI Per Admitting Provider This is a 59-year-old male who has significant past medical history of HTN, HLD, gout, diverticulosis, history of testicular cancer status post resection who presents to ED after having a few moments prior to arrival. Patient was at work whenever he was eating lunch. He was eating a eggroll when it got stuck. This occasionally happens 2-3 times a year and he makes himself vomit and regurgitate. Symptoms typically resolve. Today he was having difficulty regurgitating and developed hematemesis. He presented to ED and had approximately 100 cc hematemesis. He was seen and evaluated by GI was recommending urgent endoscopy due to suspected Sandra-Prado tear in setting of retching. Patient denies fall EGD in the past. Until since arrival he has been in her normal state of health. He denies any recent fever, chills, sweats, lightheadedness, dizziness, chest pain, palpitations, shortness of breath, cough, nausea, abdominal pain, change in bowel or urinary habits. Patient took medications for symptoms morning. In ED he remained hemodynamically stable and H&H was WNL. Upon my evaluation he had an additional 100 mg of mixed clear and bloody emesis. Principal Diagnosis Dysphagia ( difficulty in swallowing ) * Esophageal obstruction due to food impaction * hematemesis ( vomiting blood ) -resolved * Tear at lower esophagus ( food pipe ) due to wrenching/vomiting/Sandra Jony Tear Discharge Exam Constitutional WD/WN, vitals as above well developed, well nourished and + obese Eyes EOM intact bilaterally ENMT Mouth: + dentures and + edentulous; no TMJ abnormality Mallampati Class: II Neck normal visual inspection and + facial hair Respiratory normal respiratory effort, lungs clear to auscultation normal respiratory effort Auscultation: lungs clear to auscultation bilaterally Cardiovascular RRR, no murmur, no edema Rate/Rhythm: regular rate and regular rhythm Gastrointestinal (Abdomen) Inspection/Auscultation: abdomen normal to inspection; abdomen not distended Percussion/Palpation: abdomen soft; abdomen nontender and no hepatosplenomegaly Musculoskeletal Spine: normal cervical ROM Extremities: extremities normal to inspection; no cyanosis Gait: normal gait Skin no rashes, warm and dry Neurologic moves all extremities Psychiatric A+Ox3, euthymic affect Orientation: alert and oriented x 3 Discharge Data Allergies Allergy/AdvReac Type Severity Reaction Status Date / Time bee venom protein (honey bee) Allergy Unknown Unknown Verified 06/28/20 15:34 Consultations 06/28/20 13:06 Consult Gastroenterology Stat 06/28/20 14:31 ED Decision to Admit Stat Procedures Performed Operation Date: 06/28/20 08:40 Actual Procedures p Esophagogastroduodenoscopy - Food Bolus(Not Applicable) - Messi Ram MD Hospital Course (1) Esophageal obstruction due to food impaction: (2) Dysphagia: (3) Hematemesis: This is a 59-year-old male who has significant past medical history of HTN, HLD, gout, diverticulosis, history of testicular cancer status post resection who presents to ED after having a few moments prior to arrival. possible Sandra Prado tear 2/2 to retching and food bolus. s/p urgent EGD by Dr. Ram -with removal of large amount of impacted food bolus Gastrografin swallow study : IMPRESSION: Focal irregularity within the distal right esophagus concerning for an intramural tear. no extravasation of contrast in mediastinum suggestive of full thickness tear H&H been stable no further episode of hematemesis appreciate GI input tolerated full liquid diet in breakfast /offers no new complain no nausea /vomiting or abdominal pain seen by GI in am stable to be discharge home today avoid Aspirin and NSAID's will need repeat EGD in next 4-6 weeks (4) HTN (hypertension): BP stable (5) HLD (hyperlipidemia): continue statin (6) Gout: continue allopurinol (7) DVT prophylaxis: SCD/TEDS /ambulate PCP: Rody Calderon FULL CODE Disposition : Discharge to home today Total Time Total Time Spent Total Time Spent (In Minutes): 30 mins Total Time Includes: Discharge Planning and Medication Reconciliation Discharge Plan Discharge Items Patient Disposition: Home - Self-Care Reason For Visit: SANDRA PRADO TEAR Discharge Diagnosis: * Dysphagia ( difficulty in swallowing ) * Esophageal obstruction due to food impaction * hematemesis ( vomiting blood ) -resolved * Tear at lower esophagus ( food pipe ) due to wrenching/vomiting/Sandra Jony Tear Activity: Resume your previous activity Non-emergency contact: Primary Care Provider Call non-emergency contact if: you have any medication questions Follow-up/Referrals: Messi Ram MD [Physician] - (repeat EGD in 6-8 weeks ) Marshall Calderon DO [Primary Care Provider] - 07/05/20 1:40 pm (Date & Time 07/05/2020 1:40 PM Provider Marshall Calderon DO Department [facility] ) Diet: Regular Diet Texture: Dental soft (bite-sized) Addtl Attending Provider Instructions: Please take all medications as instructed on discharge list below. stay on soft diet for next 2 weeks /list of soft food added to your discharge instruction It is recommended that you follow-up with your primary care physician within 1-2 weeks of hospital discharge to ensure you are still doing well. Please call if you have any questions or problems. You can reach a [facility] hospitalist on duty at [facility] 24 hours a day by calling [phone] GI follow up for EGD in 4-6 weeks Addtl [employer] Provider Instructions: Do not take Aspirin or Group of medications belonging to NSAID's groups till evaluated by Gastroeneterology List Of these medications includes but not limited to: Aspirin Diclofenac Ibuprofen, Motrin, Advil Toradol,ketorolac Naproxen, Aleve, Naprosyn You can take Tylenol as needed for pain or fever When buying eteo-evh-kkmhzoz pain medications please consult with pharmacy if you are not sure regarding ingredients, as a lot of the pain medications have combination of NSAIDs and Tylenol. Notify your family physician with any recurrence of dark tarry stool, vomiting coffee-ground or blood These are the signs of having bleeding in your stomach to come to the ER as soon as possible for further care Pending Studies at Discharge: No Stand-Alone Forms: My [facility], Smoking Cessation Medications and DC Order Prescriptions: New pantoprazole 40 mg Tablet,Delayed Release (Dr/Ec) 40 mg PO BID 30 Days Qty: 60 RF: 0 Continued atorvastatin 40 mg tablet 40 mg PO DAILY RF: 0 atenolol 25 mg tablet 25 mg PO DAILY RF: 0 allopurinol 100 mg tablet 100 mg PO DAILY RF: 0 triamterene-hydrochlorothiazid 37.5-25 mg tablet 1 tab PO DAILY RF: 0 Discontinued aspirin [Aspir-81] 81 mg Tablet,Delayed Release (Dr/Ec) 81 mg PO DAILY RF: 0 Discharge Orders: Discharge Order (Routine); Ordered 06/30/20 Ordered By: Tonja Valdez/Other Patient Handouts: Anatomy of the Digestive System, ED Soft Diet Admission Data Admit Date/Time: 06/29/20 14:46 Attending Provider: Tonja De La O Admit Provider: Adalid Borjas Primary Care Provider: Marshall Calderon Other Providers: Messi Ram ; Adalid Borjas Other Interventions: Discharge Summary Assessment (RN) Last Done: 06/30/20 11:30
[2020-06-30] MEDS ORDERED: Nursing to Pharmacy Communication SCH (13:15)
== END 2020-06-30 13:47 | disposition home or self-care (01) | DRG 326 ==
LOC: ED 11:47 → 2N 11:47 → SUATTDRO 14:38 → 2N 15:30